=== PATIENT | female | born 1980 | race Caucasian/White ===

== ENCOUNTER 2018-01-25 21:35 | Inpatient (IN) | payer OTHER ==
[2018-01-26] MEDS: DEXTROSE 5%-LACTATED RINGERS 1,000 ML IV SCH (01:30)
[2018-01-26] MEDS ORDERED: DEXTROSE 5%-LACTATED RINGERS 1,000 ML IV ONE (01:43)
[2018-01-26] MEDS ORDERED: AMPICILLIN - 2 GM in SODIUM CHLORIDE 100 ML IVPB ONE (01:45)
[2018-01-26] MEDS ORDERED: AMPICILLIN SODIUM 2 GM VIAL ONE (02:15)
[2018-01-26 02:24] LABS: BASO % 0.3 % (0-2.0); EOS % 0.7 % (0-4.5); HEMATOCRIT 37.2 % (32.4-45.2); HEMOGLOBIN 12.9 GM/dL (10.7-15.3); LYMPH % 25.9 % (8-40); MCH 30.3 pg (25.7-33.7); MCHC 34.7 g/dl (32.0-36.0); MEAN CELL VOLUME 87.3 fl (80-96); MEAN PLT VOLUME 7.7 fl (7.5-11.1); MONO % 5.6 % (3.8-10.2); NEUT % 67.5 % (42.8-82.8); PLATELET COUNT 264 K/MM3 (134-434); RBC 4.26 M/mm3 (3.60-5.2); RDW 13.7 % (11.6-15.6)
[2018-01-26 02:30] VITALS: BMI 34.6
[2018-01-26 02:48] LABS: INR 0.87 (0.82-1.09); PROTHROMBIN TIME (PATIENT) 9.8 SEC (9.7-13.0)
[2018-01-26 02:50] LABS: ACTIVATED PTT 28.8 SECONDS (26.9-34.4)
[2018-01-26 02:55] LABS: ANION GAP 9 (8-16); BLOOD UREA NITROGEN 10 mg/dL (7-18); CALCIUM 8.7 mg/dL (8.5-10.1); CHLORIDE 110 mmol/L (98-107); CO2 20 mmol/L (21-32); CREATININE 0.5 mg/dL (0.55-1.02); GLUCOSE,RANDOM 73 mg/dL (74-106); POTASSIUM 4.2 mmol/L (3.5-5.1); SODIUM 139 mmol/L (136-145)
[2018-01-26] MEDS ORDERED: AMPICILLIN SODIUM 1 GM VIAL ONE ×4 (05:12→17:59)
[2018-01-26] MEDS: AMPICILLIN - 1 GM in SODIUM CHLORIDE 100 ML IVPB SCH ×4 (05:32→18:00)
--- NOTE | 2018-01-26 11:06 | HP ---
Past Medical History - Admission Chief Complaint: Labor pain History of Present Illness: 37 yo @ 38.5 weeks gestation, EDC 02/03/19, admitted for labor pain. She denies any vaginal bleeding nor rupture of membrane. History Source: Patient Limitations to Obtaining History: No Limitations - Past Medical History ...: 3 ...Para: 2 ...Term: 2 ...: 0 ...Spon : 0 ...Induced : 0 ...Multiple Gestation: 0 ...LMP: 04/29/17 ... Weeks Gestation by Dates: 38.5 ...EDC by Dates: 02/03/18 ...EDC by Sono: 02/03/18 - Past Surgical History Past Surgical History: Yes: None Hx Myomectomy: No Hx Transabdominal Cerclage: No - Smoking History Smoking history: Never smoked Have you smoked in the past 12 months: No - Alcohol/Substance Use Hx Alcohol Use: No History of Substance Use: reports: None - Social History Usual Living Arrangement: Yes: With Spouse History of Recent Travel: No Home Medications - Allergies Allergies/Adverse Reactions: Allergies Allergy/AdvReac Type Severity Reaction Status Date / Time No Known Allergies Allergy Verified 01/26/18 06:51 - Home Medications Home Medications: Ambulatory Orders Vit Calc,Iron,Folic [ Vitamins] 1 tab PO DAILY 01/26/18 Family Disease History - Family Disease History Family History: Unremarkable Review of Systems - Review of Systems Constitutional: reports: No Symptoms Eyes: reports: No Symptoms HENT: reports: No Symptoms Neck: reports: No Symptoms Cardiovascular: reports: No Symptoms Respiratory: reports: No Symptoms Gastrointestinal: reports: No Symptoms Genitourinary: reports: Pain Breasts: reports: No Symptoms Reported Musculoskeletal: reports: No Symptoms Neurological: reports: No Symptoms Endocrine: reports: No Symptoms Hematology/Lymphatic: reports: No Symptoms Psychiatric: reports: No Symptoms Pain Intensity: 7 Physical Exam - Maternity Vital Signs: Vital Signs Temperature 98.1 F 01/26/18 10:00 Pulse Rate 72 01/26/18 10:00 Respiratory Rate 18 01/26/18 10:00 Blood Pressure 117/73 01/26/18 10:00 O2 Sat by Pulse Oximetry (%) Constitutional: Yes: Well Nourished Eyes: Yes: Conjunctiva Clear HENT: Yes: Atraumatic Neck: Yes: Supple Cardiovascular: Yes: Regular Rate and Rhythm Lungs: Clear to auscultation - Abdominal Exam/OB Number of Fetuses: Single Presentation: Vertex Contractions: Yes Regularity: Regular - Vaginal Exam/OB Vaginal Bleediing: No Speculum Exam: No Dilatation (cm): 4 Effacement (%): 70 Amniotic Membrane Status: Intact Presentation: Vertex/Position Station: -2 - Labs Lab Results: CBC, BMP 01/26/18 01:40 01/26/18 01:40 Problem List - Problems (1) Pain during labor Code(s): O99.89 - OTH DISEASES AND CONDITIONS COMPL PREG/CHLDBRTH; R52 - PAIN, UNSPECIFIED Assessment/Plan Active labor @ 38 weeks Admit to L&D Analgesia as needed Anticipate
[2018-01-26] MEDS ORDERED: BUTORPHANOL TARTRATE 1 MG/ML VIAL IVPUSH PRN (11:15)
[2018-01-26] MEDS ORDERED: PROMETHAZINE HCL 25 MG/1 ML VIAL IVPUSH PRN (11:16)
[2018-01-26] MEDS ORDERED: PROMETHAZINE HCL 25 MG/1 ML VIAL ONE (12:38)
[2018-01-26] MEDS ORDERED: BUTORPHANOL TARTRATE 1 MG/ML VIAL ONE ×2 (12:38)
--- NOTE | 2018-01-26 12:53 | PN ---
Progress Note (short form) - Note Progress Note: cx 4 cm 80 vx -3 mi, fhr cat 1, contraction q 2 min ,
[2018-01-26] MEDS ORDERED: FENTANYL/BUPIVACAINE/NS/PF - PCEA - 50 ML DISP.SYRIN EP ONE (15:31)
--- NOTE | 2018-01-26 15:57 | PN ---
Progress Note (short form) - Note Progress Note: cx 8 cm, 80 vx -2 mr, FHR cat 1, regular contraction , wants epidural
[2018-01-26] MEDS: FENTANYL/BUPIVACAINE/NS/PF - PCEA - 50 ML DISP.SYRIN EP SCH (16:25)
[2018-01-26] MEDS ORDERED: NALOXONE HCL 0.4 MG/ML VIAL IVPUSH PRN (16:40)
[2018-01-26] MEDS ORDERED: BUPIVACAINE HCL/PF 0.25% (2.5MG/ML) 10 ML VIAL ONE (17:25)
[2018-01-26] MEDS ORDERED: OXYTOCIN 20 UNITS in 0.9% NS 20 UNIT/1,000 ML INFUS.BAG IV ONE ×2 (18:46→21:00)
--- NOTE | 2018-01-26 18:51 | PN ---
Progress Note (short form) - Note Progress Note: cx full 100 vx 1+ .fhr cat 1, pushing
[2018-01-26] MEDS ORDERED: LIDOCAINE HCL 1% PRESERVATIVE FREE - 30ML VIAL ONE (19:01)
[2018-01-26] MEDS ORDERED: METHYLERGONOVINE MALEATE 0.2 MG/1 ML AMP IM PRN (19:18)
[2018-01-26] MEDS ORDERED: BENZOCAINE 28 GM HEMORRHOIDAL OINTMENT TP PRN (19:18)
[2018-01-26] MEDS ORDERED: BISACODYL 10 MG SUPP.RECT RC PRN (19:18)
[2018-01-26] MEDS ORDERED: BENZOCAINE 20% 57 GM BOTTLE TP PRN (19:18)
[2018-01-26] MEDS ORDERED: oxyCODONE HCL 5 MG TABLET PO PRN (19:18)
[2018-01-26] MEDS ORDERED: ACETAMINOPHEN 325 MG TABLET (FP) PO PRN (19:18)
[2018-01-26] MEDS ORDERED: IBUPROFEN 600 MG TABLET (FP) PO PRN (19:18)
[2018-01-26] MEDS ORDERED: WITCH HAZEL 50% (TUCKS) 40 PAD/JAR PAD TP PRN (19:18)
[2018-01-26] MEDS ORDERED: D5W-LR W/ 20 UNITS OXYTOCIN 20 UNIT/1,000 ML INFUS.BAG IV SCH (19:30)
[2018-01-26 19:47] LABS: ARTERIAL BLOOD GAS BASE EXCESS -5.3 meq/l (-2-2); ARTERIAL BLOOD GAS PCO2 48.1 mmHg (35-45); ARTERIAL BLOOD GAS pH 7.27 (7.35-7.45)
[2018-01-26 19:56] LABS: ARTERIAL BLD GAS O2 SATURATION 41.8 % (90-98.9); ARTERIAL BLOOD GAS PO2 24.5 mmHg (80-100)
[2018-01-26 19:57] LABS: VENOUS PC02 39.7 mmHg (38-52); VENOUS PH 7.33 (7.32-7.42); VENOUS PO2 27.9 mmHg (28-48)
[2018-01-26] MEDS: FERROUS SO4 325 MG TABLET (FP) PO SCH (23:33)
[2018-01-27 08:17] LABS: BASO % 0.2 % (0-2.0); EOS % 0.2 % (0-4.5); HEMATOCRIT 31.4 % (32.4-45.2); LYMPH % 13.5 % (8-40); MCH 30.8 pg (25.7-33.7); MCHC 34.9 g/dl (32.0-36.0); MEAN CELL VOLUME 88.4 fl (80-96); MEAN PLT VOLUME 7.7 fl (7.5-11.1); MONO % 5.5 % (3.8-10.2); NEUT % 80.6 % (42.8-82.8); PLATELET COUNT 190 K/MM3 (134-434); RBC 3.56 M/mm3 (3.60-5.2); RDW 13.9 % (11.6-15.6); WHITE BLOOD COUNT 11.2 K/mm3 (4.0-10.0)
--- NOTE | 2018-01-27 08:57 | PN ---
Post Progress Note - Subjective Subjective: no complains Post Day: 1 Type of Delivery: Vital Signs: Vital Signs Temperature 98.7 F 01/27/18 06:00 Pulse Rate 97 H 01/27/18 06:00 Respiratory Rate 20 01/27/18 06:00 Blood Pressure 100/62 01/27/18 06:00 O2 Sat by Pulse Oximetry (%) 100 01/26/18 20:10 Breast Exam: Yes: Soft, Other (BF). No: Engorged Uterus: Yes: Fundus Firm, Fundus below umbilicus, Non-tender Lochia: Yes: Rubra Lochia, amount: Moderate Extremities: Yes: Calves non-tender Perineum: Yes: Laceration (no perineal soreness) Activity: Ambulating - Labs Labs: CBC WBC 11.2 K/mm3 (4.0-10.0) H D 01/27/18 07:40 RBC 3.56 M/mm3 (3.60-5.2) L 01/27/18 07:40 Hgb 11.0 GM/dL (10.7-15.3) D 01/27/18 07:40 Hct 31.4 % (32.4-45.2) L D 01/27/18 07:40 MCV 88.4 fl (80-96) 01/27/18 07:40 MCH 30.8 pg (25.7-33.7) 01/27/18 07:40 MCHC 34.9 g/dl (32.0-36.0) 01/27/18 07:40 RDW 13.9 % (11.6-15.6) 01/27/18 07:40 Plt Count 190 K/MM3 (134-434) D 01/27/18 07:40 MPV 7.7 fl (7.5-11.1) 01/27/18 07:40 Absolute Neuts (auto) 9.0 # 01/27/18 07:40 Neutrophils % 80.6 % (42.8-82.8) 01/27/18 07:40 Lymphocytes % 13.5 % (8-40) D 01/27/18 07:40 Monocytes % 5.5 % (3.8-10.2) 01/27/18 07:40 Eosinophils % 0.2 % (0-4.5) 01/27/18 07:40 Basophils % 0.2 % (0-2.0) 01/27/18 07:40 Nucleated RBC % 0 % (0-0) 01/27/18 07:40 Problem List - Problems (1) care following vaginal delivery Code(s): Z39.2 - ENCOUNTER FOR ROUTINE FOLLOW-UP Assessment/Plan stable. plan ct pp care discharge tomorrow
[2018-01-27] MEDS ORDERED: DIPHTH,PERTUSS(ACELL),TET 0.5 ML DISP.SYRIN IM ONE (10:00)
[2018-01-27] MEDS: PRENATAL VITAMINS W/ FOLIC ACID TABLET (FP) PO SCH (10:14)
[2018-01-27] MEDS: FERROUS SO4 325 MG TABLET (FP) PO SCH ×2 (10:14→22:08)
[2018-01-27] MEDS: AMPICILLIN - 1 GM in SODIUM CHLORIDE 100 ML IVPB SCH (15:39)
[2018-01-27] MEDS: DEXTROSE 5%-LACTATED RINGERS 1,000 ML IV SCH (18:48)
[2018-01-27] MEDS: FENTANYL/BUPIVACAINE/NS/PF - PCEA - 50 ML DISP.SYRIN EP SCH (18:48)
[2018-01-27] MEDS ORDERED: SENNOSIDES/DOCUSATE COMBO (SENNA PLUS) TABLET (UD) PO PRN (22:00)
--- NOTE | 2018-01-28 07:02 | DS ---
Physical Exam-MANAGED SERVICES CONSULTANT Vital Signs: Vital Signs Temperature 98.4 F 01/27/18 21:02 Pulse Rate 72 01/27/18 21:02 Respiratory Rate 18 01/27/18 21:02 Blood Pressure 120/70 01/27/18 21:02 O2 Sat by Pulse Oximetry (%) 100 01/26/18 20:10 Constitutional: Yes: Well Nourished Eyes: Yes: Conjunctiva Clear HENT: Yes: Atraumatic Neck: Yes: Supple Cardiovascular: Yes: Regular Rate and Rhythm Respiratory: Yes: Regular Gastrointestinal: Yes: Normal Bowel Sounds External Genitalia: Yes: Normal Vaginal Exam: Yes: Normal Cervix: Yes: Normal Uterus: Yes: Firm ....Post : Yes: Uterus firm, Moderate lochia serosa Breast(s): Yes: WNL Musculoskeletal: Yes: WNL Extremities: Yes: WNL Integumentary: Yes: WNL Neurological: Yes: Alert, Oriented ...Motor Strength: WNL Psychiatric: Yes: Alert, Oriented Labs: CBC, BMP 01/27/18 07:40 01/26/18 01:40 Delivery - Delivery Type of Anesthesia: Epidural Episiotomy/Laceration: 1st degree EBL (cc): 300 Delivery, Single - Stages of Labor Date 1st Stage Initiatied: 01/25/18 Time 1st Stage Initiated: 01:18 Date 2nd Stage Initiated: 01/26/18 Time 2nd Stage Initiated: 18:50 Date of Delivery: 01/26/18 Time of Delivery: 19:01 Time Placenta Delivered: 19:03 - Condition of Infant 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 Gender: Male Weight: 9 lb Position: Left, OA Total Hours ROM (Hrs/Mins): 8 hours 31 minutes - 1 Minute Total Score: 9 5 Minutes Total Score: 9 - [place] Feeding Plan Initial Plan: Elected not to breastfeed exclusively throughout hospitalization Discharge Summary Reason For Visit: ADMIT LABOR Current Active Problems Pain during labor (Acute) care following vaginal delivery (Acute) Condition: Good - Instructions Diet, Activity, Other Instructions: Regular diet No douching, no sexual intercourse x 6 weeks F/U in clinic in 6 weeks Disposition: HOME - Home Medications Comprehensive Discharge Medication List: Ambulatory Orders Vit Calc,Iron,Folic [ Vitamins] 1 tab PO DAILY 01/26/18
[2018-01-28 08:44] VITALS: BP 126/69; PULSE 62; TEMP 98
[2018-01-28] MEDS: PRENATAL VITAMINS W/ FOLIC ACID TABLET (FP) PO SCH (09:18)
[2018-01-28] MEDS: FERROUS SO4 325 MG TABLET (FP) PO SCH (09:18)
== END 2018-01-28 11:15 | disposition home or self-care (01) | DRG 560 ==
LOC: JDEL 21:35 → JLDR 01-26 01:15 → J3W 01-26 21:45
PROVIDERS: ADMIT Obstetrics & Gynecology; ATTEND Obstetrics & Gynecology
PROC: 10E0XZZ Delivery of Products of Conception, External Approach (ICD-10-PCS; principal; 2018-01-26)
PROC: 0HQ9XZZ Repair Perineum Skin, External Approach (ICD-10-PCS; 2018-01-26)
DX: O70.0 First degree perineal laceration during delivery (principal); Z3A.38 38 weeks gestation of pregnancy; Z37.0 Single live birth
CPT/HCPCS: 36415; 36600; 59409; 80048; 82803; 85025; 85610; 85730; 86593; 86850; 86900; 86901; 90715

== ENCOUNTER 2023-03-01 06:37 | Emergency (ER) | payer OTHER ==
[2023-03-01 06:44] VITALS: BP 118/74; PULSE 76; RESP 16; TEMP 97.9; BMI 28.1
== END 2023-03-01 10:10 | disposition home or self-care (01) ==
LOC: JER 06:37
DX: M79.641 Pain in right hand (principal); W18.39XA Other fall on same level, initial encounter; Y93.73 Activity, racquet and hand sports
CPT/HCPCS: 73110-TC-RT-FY; 73130-TC-RT-FY; 99283-25